=== PATIENT | female | born 1960 | race Caucasian/White ===

== ENCOUNTER 2016-10-18 09:36 | Emergency (ER) | payer OTHER ==
[~2016-10-18] VITALS: Ht 160 cm; Wt 66.8 kg
[~2016-10-18 09:36] MED LIST: CHOL1000 PO; HYDR-5688 PO; MAGNTAB4 PO; VENL75CA PO
[2016-10-18 09:40] VITALS: TEMP 36.8; Ht 160 cm; Wt 66.8 kg
[2016-10-18] MEDS ORDERED: OXYMETAZOLINE HCL 0.05% NA SPR 15 ML BTL ONE (10:04)
[2016-10-18] MEDS ORDERED: CYAN100073 PO (11:07)
[2016-10-18] MEDS ORDERED: DIPH25CA65 PO (11:07)
[2016-10-18 11:15] VITALS: BP 126/84; PULSE 88; O2SAT 94
--- NOTE | 2016-10-18 13:02 | EMERGENCY ROOM VISIT NOTE ---
History First contact with patient: 10:14 Chief Complaint: NOSE BLEED (MINOR) Stated Complaint: SECOND NOSEBLEED THIS MORNING History of Present Illness The patient is a 56 year old female who presents to the Emergency Room with complaints of intermittent nosebleeds today. The patient reports that she did have a nosebleed while showering approximately one week ago. Although she had significant bleeding, it quickly resolved with pressure. The patient reports that she had 2 episodes of bleeding again today. She denies swallowing any no blood. The bleeding was primarily from the right nostril, but did have a little bit of drainage from the left nostril after applying direct pressure. She denies any headaches, dizziness or nausea. The patient does have electric heat in her home. She currently does not take any blood thinners. She does report that her blood pressure recently has been elevated, and has an appointment tomorrow to see her PCP. She denies any pain. Review of Systems 10 system review was performed and was negative except for pertinent positives and negatives as indicated in history of present illness Past Medical/Surgical History Medical Problems: (1) Bronchial asthma Family History Cancer Diabetes mellitus Heart disease Hypertension Lung disease Social History Smoking Status: Never Smoker Alcohol Use: none Marital Status: Housing Status: lives with family Current/Historical Medications Scheduled Cholecalciferol (Vitamin D3), 1 TAB PO DAILY Cyanocobalamin (B12), 1 TAB PO DAILY Diphenhydramine Hcl (Benadryl Allergy), 1 CAP PO HS Magnesium Chloride (Slow-Mag Tab), 64 MG PO DAILY Venlafaxine Hcl (Effexor Xr), 1 CAP PO DAILY Allergies Coded Allergies: No Known Allergies (Unverified , 10/18/16) Physical Exam Vital Signs Date Time Temp Pulse Resp B/P Pulse Ox O2 Delivery O2 Flow Rate FiO2 10/18/16 11:15 88 18 126/84 94 10/18/16 09:40 36.8 90 18 169/121 95 Pain Rating (0-10): 0 Physical Exam CONSTITUTIONAL: Healthy and well nourished. Alert and oriented X 3 with positive affect. Patient does not appear in any acute distress. HEENT: On my initial exam, the patient has a pressure clamp on her nose. Normocephalic, atraumatic. Pupils equal, round and reactive. Examination of the ears does not show any TM bulging. No subconjunctival hemorrhage, scleral icterus or conjunctival pallor. NECK: Full active range of motion without discomfort. No JVD or carotid bruits. RESPIRATORY: Clear to auscultation bilaterally with no wheezing, crackles, rhonchi or stridor. CARDIOVASCULAR: Regular rate and rhythm with no murmurs, rubs or gallops. GASTROINTESTINAL: Bowel sounds present in all quadrants. Soft and nontender to palpation. MUSCULOSKELETAL: Full range of motion of all joints without discomfort. INTEGUMENTARY: No rash or other significant dermatologic conditions noted. NEUROLOGIC: No focal neurologic deficits noted. Medical Decision & Procedures Medications Administered Medications (Trade) Dose Ordered Sig/Stephanie Route Start Time Stop Time Status Last Admin Dose Admin Oxymetazoline HCl (Afrin 0.05% Nasal [place]) 75 sprays STK-MED ONCE .ROUTE 10/18/16 10:04 10/18/16 10:06 DC 10/18/16 10:04 75 SPRAYS ED Course Patient history and physical exam were performed. Nurse's notes were reviewed. Afrin protocol and nasal clamp was applied approximate 15 minutes prior to my evaluation. An additional 20 minutes elapsed before my next exam. Examination of the right nostril does show mild bleeding from the [place]essel[place] plexus. No active bleeding was noted on exam. She also had no active bleeding from the left nostril. At this point, I suggested that she continue with Afrin sprays again in 2 hours and at 4 hours. She was encouraged to apply the sprays twice daily over the next 24 hours. If she has any recurrent bleed, she was instructed to apply continuous direct pressure with a nasal clamp. I also encouraged her to use [place] nasal sprays, and consider purchasing a humidifier for additional relief. Return to the emergency department for any progressive or persistent bleeding. The patient was also encouraged to follow up with ENT for further reevaluation given her epistaxis recurrent seen. She will also see her PCP tomorrow for recheck of her blood pressure as her pressure in the emergency department today was 169/121. The patient was happy with plan of care, and voiced understanding of all discharge instructions. Medical Decision Impression Primary Impression: Epistaxis Additional Impression: Elevated blood pressure reading Departure Information Dispostion Home / Self-Care Condition GOOD Forms HOME CARE DOCUMENTATION FORM, IMPORTANT VISIT INFORMATION Patient Instructions [facility] Additional Instructions Administer Afrin 2 sprays in 2 hours, then 2 puffs every 4 hours for the rest of the day. If bleeding reoccurs, apply direct pressure for at least 30 minutes. Suggest also using [place] nasal sprays to keep mucous membranes moist. Also suggest using a humidifier and your home. Return to the emergency department with any bleeding not controlled with Afrin or direct pressure. Discussion your elevated blood pressure with your family doctor. Problem Qualifiers
== END 2016-10-18 11:15 | disposition home or self-care (01) ==
LOC: C.EDB 09:37
DX: R04.0 Epistaxis (principal); R03.0 Elevated blood-pressure reading, without diagnosis of hypertension; J45.909 Unspecified asthma, uncomplicated; Z79.899 Other long term (current) drug therapy; Z80.9 Family history of malignant neoplasm, unspecified; Z83.3 Family history of diabetes mellitus; Z82.49 Family history of ischemic heart disease and other diseases of the circulatory system

== ENCOUNTER 2016-11-03 09:28 | Emergency (ER) | payer OTHER ==
[~2016-11-03] VITALS: Ht 160 cm; Wt 66.2 kg
[~2016-11-03 09:28] MED LIST changes: +CYAN100073 PO; +DIPH25CA65 PO; -HYDR-5688 PO
[2016-11-03 09:48] VITALS: TEMP 36.9; Ht 160 cm; Wt 66.2 kg
[2016-11-03] MEDS ORDERED: OXYMETAZOLINE HCL 0.05% NA SPR 15 ML BTL ONE (09:57)
[2016-11-03] MEDS ORDERED: ACET325T96 PO (10:35)
[2016-11-03 11:55] VITALS: BP 165/109; PULSE 74; O2SAT 97
[2016-11-03] MEDS ORDERED: SILVER NITR/POTASSIUM NITRATE 10 APPLICATOR PACK ONE (11:56)
--- NOTE | 2016-11-03 17:25 | EMERGENCY ROOM VISIT NOTE ---
History Report prepared by [place]: Leland Agosto Under the Supervision of: Dr. Peterson Bryan D.O. First contact with patient: 10:40 Chief Complaint: NOSE BLEED (MAJOR) Stated Complaint: NOSE BLEED WONT STOP History of Present Illness The patient is a 56 year old female who presents to the Emergency Room with complaints of persistent epistaxis from the right nares that started at 0800 this morning. She was not blowing or picking her nose this morning. She is not noticing any blood dripping into her throat. She used Afrin spray around 0830 this morning. The patient has no previous history of nosebleeds until three weeks ago, and has been having two nosebleeds per week since. The bleeding is always from the right nares. The patient has not seen an ENT for the bleeding. The patient is not on any blood thinners. She does take Ibuprofen. The patient notes that she had a stress test yesterday. She denies change in vision, fevers , chest pain, shortness of breath, nausea, vomiting, diarrhea, pain with urination, and melena. Source of History: patient Onset: 0800 this morning Position: nose (right) Quality: other (epistaxis) Timing: other (persistent) Associated Symptoms: No SOB, No chest pain, No diarrhea, No fevers, No melena, No nausea, No urinary symptoms, No vomiting Review of Systems See HPI for pertinent positives & negatives. A total of 10 systems reviewed and were otherwise negative. Past Medical & Surgical Medical Problems: (1) Bronchial asthma Family History Cancer Diabetes mellitus Heart disease Hypertension Lung disease Social History Smoking Status: Never Smoker Alcohol Use: none Marital Status: Housing Status: lives with family Current/Historical Medications Scheduled Cholecalciferol (Vitamin D3), 1 TAB PO DAILY Cyanocobalamin (B12), 1 TAB PO DAILY Diphenhydramine Hcl (Benadryl Allergy), 1 CAP PO HS Magnesium Chloride (Slow-Mag Tab), 64 MG PO DAILY Venlafaxine Hcl (Effexor Xr), 1 CAP PO DAILY Miscellaneous Medications Acetaminophen Tab (Tylenol), 650 MG PO Allergies Coded Allergies: No Known Allergies (Unverified , 11/03/16) Physical Exam Vital Signs Date Time Temp Pulse Resp B/P Pulse Ox O2 Delivery O2 Flow Rate FiO2 11/03/16 11:55 74 18 165/109 97 Room Air 3/3/17 10:57 71 16 128/97 95 11/03/16 10:02 163/97 11/03/16 09:48 36.9 85 18 141/100 96 Room Air Physical Exam GENERAL: Sitting up in bed, alert, well appearing, well nourished, no distress, non-toxic EYE EXAM: normal conjunctiva, PERRL and EOM's grossly intact OROPHARYNX: no exudate, no erythema, lips, buccal mucosa, and tongue normal and mucous membranes are moist. No blood in posterior oropharynx. NOSE: Nasal clamp was removed. No active bleeding present in the right nostril but dried blood was noted. Left nostril without bleeding. NECK: supple, no nuchal rigidity, no adenopathy, non-tender LUNGS: Clear to auscultation. Normal chest wall mechanics HEART: no murmurs, S1 normal and S2 normal ABDOMEN: abdomen soft, non-tender, normo-active bowel sounds, no masses, no rebound or guarding. NEURO EXAM: Normal sensorium. Medical Decision & Procedures Medications Administered Medications (Trade) Dose Ordered Sig/Stephanie Route Start Time Stop Time Status Last Admin Dose Admin Oxymetazoline HCl (Afrin 0.05% Nasal [place]) 75 sprays STK-MED ONCE .ROUTE 11/03/16 09:57 11/03/16 10:00 DC 11/03/16 09:57 75 SPRAYS Silver Nitrate/ Potassium Nitrate (Silver Nitrate Applicators) 1 pkt STK-MED ONCE .ROUTE 11/03/16 11:56 11/03/16 11:59 DC 11/03/16 11:56 1 PKT Procedure Anterior Nasal Packing Indication: Epistaxis. Verbal consent obtained. Risks and benefits were explained with the usual customary discussion. A time out was taken. Clots were removed with suction. The right naris was prepped with Afrin and lidocaine. A 5.5-cm nasal balloon was placed in a standard fashion. The patient tolerated this well. Hemostasis was achieved. No complications. Packing was later removed. Right anterior septum cauterized. ED Course ED COURSE: Vital signs were reviewed and showed hypertension. The patients medical record was reviewed The above diagnostic studies were performed and reviewed. ED treatments and interventions as stated above. 1041: The patient was evaluated in room A2. A complete history and physical examination was performed. 1048: Anterior nasal packing applied. Please see procedural note above. 1200: The patient requested to be discharged as she has an appointment with an ENT at [facility]. Afrin packing removed, slight bleeding from anterior septum was noted which was cauterized quickly. The patient was discharged per her request to go see ENT. 1200: Upon reevaluation, the patient is ready for discharge.I discussed my findings with the patient and she understands and agrees with the treatment plan. Based on the patients age, coexisting illnesses, exam and lab findings the decision to treat as an outpatient was made. The patient remained stable while under my care. The patient appeared well at the time of discharge. Medical Decision Patient is a 56-year-old female who presents the ER for epistaxis from her right nostril. Patient notes that she has been having this off-and-on for the past several days. Patient takes no blood thinners. She is no other complaints at this time. She did have a stress test performed yesterday. Nasal clamp was removed and there is no active bleeding at that time. I did pack her nose with Afrin gauze for 30-40 minutes. I did remove this. At that time and noticed some bleeding along the septum. She requested to be discharged because she has appointment with ENT at this time. I quickly tried to cauterize the anterior septum on the right and discharged her ENT per her request. Following the cauterization but did not notice any active bleeding. Discussed with Pt concerning signs and symptoms to watch out for. Pt was instructed to follow up with their PCP and discussed with the patient their option to return to the ED at anytime for persistent or worsening symptoms. The appropriate anticipatory guidance and out-patient management, including indications for return to the emergency department, were explained at length to the patient and understood. Impression Primary Impression: Epistaxis Scribe Attestation The scribe's documentation has been prepared under my direction and personally reviewed by me in its entirety. I confirm that the note above accurately reflects all work, treatment, procedures, and medical decision making performed by me. Departure Information Dispostion Home / Self-Care Referrals Mae Mora M.D. (PCP) Forms HOME CARE DOCUMENTATION FORM, IMPORTANT VISIT INFORMATION, WORK / SCHOOL INSTRUCTIONS Patient Instructions ED Jeff, My [facility] Additional Instructions Please follow up with ENT as you already have a appointment set up for today. Any worsening of your symptoms, please return to the ED immediately. For persistent bleeding, passing out, lightheadedness or dizziness, or any other concerning signs or symptoms from your standpoint. If bleeding recurs please apply nose clamp/full pressure for 15-20 minutes. If bleeding continues after this please return to the ER.
== END 2016-11-03 12:14 | disposition home or self-care (01) ==
LOC: C.EDB 09:30 → C.EDA 12:14
DX: R04.0 Epistaxis (principal); J45.909 Unspecified asthma, uncomplicated; Z79.899 Other long term (current) drug therapy; Z80.9 Family history of malignant neoplasm, unspecified; Z83.3 Family history of diabetes mellitus; Z82.49 Family history of ischemic heart disease and other diseases of the circulatory system

== ENCOUNTER 2018-01-03 07:35 | Emergency (ER) | payer OTHER ==
[~2018-01-03] VITALS: Ht 160 cm; Wt 65.7 kg
[~2018-01-03 07:35] MED LIST changes: +ACET-1693 PO
[2018-01-03 07:37] VITALS: TEMP 36.6; Ht 160 cm; Wt 65.7 kg
[2018-01-03] MEDS ORDERED: LISI-1116 PO (08:11)
[2018-01-03] MEDS ORDERED: CETI10TA84 PO (08:11)
[2018-01-03] MEDS ORDERED: FLUT0.15 NAE (08:11)
--- NOTE | 2018-01-03 08:31 | DIAGNOSTIC IMAGING REPORT ---
L FEMUR 2 VIEWS ROUTINE, PELVIS 1 OR 2 VIEW ROUTINE HISTORY: 57 years-old Female Fall, L leg pain acute pelvic and left leg pain status post fall COMPARISON: Left knee radiographs 06/21/2016 TECHNIQUE: AP view of the pelvis with 2 views of the left femur FINDINGS: PELVIS: There are mild degenerative changes about the bilateral femoral acetabular joints. Imaged bilateral proximal femora appear intact. Mild to moderate degenerative changes about the pubic symphysis and bilateral SI joints. No pelvic ring fracture identified. 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 Calcifications of the pelvis suggest phleboliths. FEMUR: No acute fracture or dislocation. Mild tricompartment osteoarthritis about the knee with suspected small joint effusion. IMPRESSION: No acute fracture or dislocation. The above report was generated using voice recognition software. It may contain grammatical, syntax or spelling errors. Electronically signed by: Hao Mooney M.D. 01/03/2018 8:30 AM Dictated Date/Time: 01/03/2018 8:28 AM
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
[2018-01-03 09:15] VITALS: BP 129/78; PULSE 77; O2SAT 98
== END 2018-01-03 09:16 | disposition home or self-care (01) ==
LOC: C.EDB 07:37
DX: M79.605 Pain in left leg (principal); W19.XXXA Unspecified fall, initial encounter